=== PATIENT | female | born 1980 | race African-American/Black ===

== ENCOUNTER 2021-09-23 08:51 | Emergency (ER) | payer OTHER ==
[~2021-09-23] VITALS: Ht 154.9 cm; Wt 59.0 kg
--- NOTE | 2021-09-23 08:52 | NUR ---
Patient wheelchair assisted to bed 4 at this time.
--- NOTE | 2021-09-23 08:52 | NUR ---
41 Y/O F, WC FOR TRIAGE FOR SOB, WASN'T ABLE TO FIND INHAULER SO CAME TO THE ED FOR TREATMENT. NKDA PMD ASTHMA
[2021-09-23 08:54] VITALS: BP 149/56
--- NOTE | 2021-09-23 09:05 | NUR ---
DR HORNER AT BEDSIDE FOR MSE
--- NOTE | 2021-09-23 09:05 | NUR ---
RT AT BEDSIDE FOR BREATHING TREATMENT, WHEEZING AND COUGH HEARD AT THIS TIME
[2021-09-23] MEDS: ALBUTEROL SULFATE/IPRATROPIU 3 ML SOL IH ONE (09:07)
[2021-09-23] MEDS: predniSONE 20 MG TAB PO ONE (09:36)
[2021-09-23] MEDS ORDERED: ALBU0.0912 IH (09:52)
[2021-09-23] MEDS ORDERED: PRED20TA5 PO (09:52)
[2021-09-23 10:15] VITALS: BP 120/69
--- NOTE | 2021-09-23 10:15 | NUR ---
Patient discharged with v/s stable. Written and verbal after care instructions given and explained. Patient alert, oriented and verbalized understanding of instructions. Ambulatory with steady gait. All questions addressed prior to discharge. ID band removed. Patient advised to follow up with PMD. Rx of albuterol, prednisone given. Patient educated on indication of medication including possible reaction and side effects. Opportunity to ask questions provided and answered.
== END 2021-09-23 10:15 | disposition home or self-care (01) ==
LOC: MED 08:51
DX: J45.901 Unspecified asthma with (acute) exacerbation (principal); F17.210 Nicotine dependence, cigarettes, uncomplicated
CPT/HCPCS: 94640; 99283; J7512